=== PATIENT | male | born 1970 | race American Indian/Alaskan Native ===

== ENCOUNTER 2018-08-13 15:37 | Emergency (ER) | payer OTHER ==
--- NOTE | 2018-08-13 16:17 | Event Note ---
ED Screening Note Date of service: 08/13/18 Time: 16:13 ED Screening Note: 48 y/o male comes in for chest pain times 2 day. Hx/o none, no meds. No n/v pain 05/21. This initial assessment/diagnostic orders/clinical plan/treatment(s) is/are subject to change based on patients health status, clinical progression and re- assessment by fellow clinical providers in the ED. Further treatment and workup at subsequent clinical providers discretion. Patient/guardian urged not to elope from the ED as their condition may be serious if not clinically assessed and managed. Initial orders include:
--- NOTE | 2018-08-13 16:47 | XRay Report ---
CHEST 2 VIEWS INDICATION / CLINICAL INFORMATION: chest pain.. COMPARISON: None available. FINDINGS: SUPPORT DEVICES: None. HEART / MEDIASTINUM: No significant abnormality. LUNGS / PLEURA: No significant pulmonary or pleural abnormality. No pneumothorax. ADDITIONAL FINDINGS: No significant additional findings. IMPRESSION: 1. No acute findings. Signer Name: Speedy Brady MD Signed: 08/13/2018 4:43 PM Workstation Name: [id number]
[2018-08-13 16:57] LABS: Basophils # (Auto) 0.1 K/mm3 (0.0-0.1); Eosinophils # (Auto) 0.1 K/mm3 (0.0-0.4); Eosinophils % (Auto) 1.4 % (0.0-4.3); Hemoglobin 15.5 gm/dl (11.8-15.2); Lymphocytes # (Auto) 3.3 K/mm3 (1.2-5.4); Lymphocytes % (Auto) 32.1 % (13.4-35.0); Mean Corpuscular HGB Conc 34 % (32-34); Mean Corpuscular Volume 84 fl (84-94); Monocytes # (Auto) 0.7 K/mm3 (0.0-0.8); Monocytes % (Auto) 7.1 % (0.0-7.3); Platelet Count 196 K/mm3 (140-440); Red Blood Count 5.45 M/mm3 (3.65-5.03); Red Cell Distribution Width 14.8 % (13.2-15.2)
[2018-08-13 17:21] LABS: Alanine Aminotransferase 31 units/L (7-56); Albumin 4.3 g/dL (3.9-5); BUN/Creatinine Ratio 8; Blood Urea Nitrogen 10 mg/dL (9-20); Calcium 9.4 mg/dL (8.4-10.2); Hemolysis Index 24
[2018-08-13 20:38] VITALS: BP 154/105
--- NOTE | 2018-08-13 21:12 | Emergency Department Report ---
ED Chest Pain HPI - General Chief Complaint: Chest Pain Stated Complaint: CHEST PAIN/SOB Time Seen by Provider: 08/13/18 19:45 Source: patient Mode of arrival: Ambulatory Limitations: No Limitations - History of Present Illness Initial Comments: Patient is a 48-year-old Afro-[place] male with no past medical history who presents to the ED complaining of acute onset persistent intermittent left-sided chest pain for the last 3 days intermittently. Patient states that the pain is sharp and tight and last less than a second referral it resolves. The patient states that nothing appears to aggravate it or relieve it. Patient denies dizziness, nausea, vomiting, chest pain, headache, palpitations, change in vision, neck pain, shortness of breath, abdominal pain, syncope, diaphoresis or fever and chills and cough. MD Complaint: chest pain (left-sided) -: Gradual, days(s) (3) Onset: after eating Pain Location: substernal, left chest Pain Radiation: none Severity: mild Severity scale (0 -10): 2 Quality: tightness, dull, squeezing Consistency: intermittent Improves With: nothing Worsens With: nothing re: denies: nausea, vomting, diaphoresis, dyspnea, sense of impending doom Other Symptoms: denies: cough, fever, syncope, rash, acid taste in mouth, leg swelling, palpitations, burping Treatments Prior to Arrival: none Aspirin use within the Past 7 Days: (0) No - Related Data On Oral Contraceptives: No Previous Rx's Medication Instructions Recorded Last Taken Type Cyclobenzaprine [Flexeril] 10 mg PO Q8H PRN #12 tablet 08/13/18 Unknown Rx Naproxen [Naprosyn] 500 mg PO Q12H PRN #20 tablet 08/13/18 Unknown Rx Ranitidine HCl [Zantac] 150 mg PO Q12H #30 tablet 08/13/18 Unknown Rx Allergies Allergy/AdvReac Type Severity Reaction Status Date / Time No Known Allergies Allergy Verified 08/13/18 16:15 Heart Score - HEART Score History: Slightly suspicious EKG: Normal Age: 45-65 Risk factors: 1-2 risk factors Troponin: < normal limit HEART Score: 2 - Critical Actions Critical Actions: 0-3 pts:0.9-1.7%risk of adverse cardiac event.Candidate for discharge ED Review of Systems ROS: Stated complaint: CHEST PAIN/SOB Other details as noted in HPI Comment: All other systems reviewed and negative Constitutional: denies: chills, fever Eyes: denies: eye pain, eye discharge, vision change ENT: denies: ear pain, throat pain Respiratory: denies: cough, shortness of breath, wheezing Cardiovascular: chest pain. denies: palpitations, dyspnea on exertion, syncope, paroxysmal nocturnal dyspnea Endocrine: no symptoms reported Gastrointestinal: denies: abdominal pain, nausea, diarrhea Genitourinary: denies: urgency, dysuria Musculoskeletal: denies: back pain, joint swelling, arthralgia Skin: denies: rash, lesions Neurological: denies: headache, weakness, paresthesias Psychiatric: denies: anxiety, depression Hematological/Lymphatic: denies: easy bleeding, easy bruising ED Past Medical Hx - Past Medical History Previous Medical History?: No - Surgical History Past Surgical History?: Yes Additional Surgical History: right - Social History Smoking Status: Current Every Day Smoker Substance Use Type: Alcohol - Medications Home Medications: Home Medications Medication Instructions Recorded Confirmed Last Taken Type Cyclobenzaprine [Flexeril] 10 mg PO Q8H PRN #12 tablet 08/13/18 Unknown Rx Naproxen [Naprosyn] 500 mg PO Q12H PRN #20 tablet 08/13/18 Unknown Rx Ranitidine HCl [Zantac] 150 mg PO Q12H #30 tablet 08/13/18 Unknown Rx ED Physical Exam - General Limitations: No Limitations General appearance: alert, in no apparent distress - Head Head exam: Present: atraumatic, normocephalic, normal inspection - Eye Eye exam: Present: normal appearance, PERRL, EOMI Pupils: Present: normal accommodation - ENT ENT exam: Present: normal exam, normal orophraynx, mucous membranes moist, TM's normal bilaterally, normal external ear exam - Neck Neck exam: Present: normal inspection, full ROM - Respiratory Respiratory exam: Present: normal lung sounds bilaterally. Absent: respiratory distress, wheezes, rales, rhonchi, stridor, chest wall tenderness, accessory muscle use, decreased breath sounds, prolonged expiratory - Cardiovascular Cardiovascular Exam: Present: regular rate, normal rhythm, normal heart sounds. Absent: systolic murmur, diastolic murmur, rubs, gallop - GI/Abdominal GI/Abdominal exam: Present: soft, normal bowel sounds. Absent: distended, guarding, rebound, hyperactive bowel sounds - Rectal Rectal exam: Present: deferred - Extremities Exam Extremities exam: Present: normal inspection, full ROM, normal capillary refill - Back Exam Back exam: Present: normal inspection, full ROM. Absent: CVA tenderness (L), muscle spasm, vertebral tenderness - Neurological Exam Neurological exam: Present: alert, oriented X3, CN II-XII intact, normal gait, reflexes normal - Psychiatric Psychiatric exam: Present: normal affect, normal mood - Skin Skin exam: Present: warm, dry, intact, normal color. Absent: rash ED Course Vital Signs 08/13/18 08/13/18 16:13 20:07 Temperature 98.2 F Pulse Rate 68 60 Respiratory 16 15 Rate Blood Pressure 166/92 154/105 [Right] O2 Sat by Pulse 98 97 Oximetry - Reevaluation(s) Reevaluation #1: 08/13/18 21:40 Patient is alert and oriented but easily and is not in distress. Lab test results were reviewed and are all unremarkable including repeat 2 hours troponin levels. Chest x-ray shows no acute cardiopulmonary abnormalities. The patient has a HEART score of 2 based on the patient's age and risk factor for coronary artery disease which is heavy tobacco use. Patient has not had a stress test or ever been evaluated by a burn crew member. Patient was discharged home and given a referral to the burn crew member on-call Dr. Mcfarland for outpatient. Patient was advised to return to the ED immediately if symptoms get worse. SOPHIA score - Sophia Score Age > 65: (0) No Aspirin use within the Past 7 Days: (0) No 3 or more CAD Risk Factors: (0) No 2 or more Angina events in past 24 hrs: (0) No Known CAD with more than 50% Stenosis: (0) No Elevated Cardiac Markers: (0) No ST Deviation Greater than 0.5mm: (0) No SOPHIA Score: 0 ED Medical Decision Making - Lab Data Result diagrams: 08/13/18 16:47 08/13/18 16:47 - EKG Data Rate: normal - EKG Data Interpretation: normal EKG 08/13/18 21:47 Normal sinus rhythm with ventricular rate of 81 bpm, no ST or T wave abnormalities - Radiology Data Radiology results: report reviewed, image reviewed Chest x-ray shows no acute cardiopulmonary abnormalities - Medical Decision Making Patient is alert and oriented but easily and is not in distress. Lab test results were reviewed and are all unremarkable including repeat 2 hours troponin levels. Chest x-ray shows no acute cardiopulmonary abnormalities. The patient has a HEART score of 2 based on the patient's age and risk factor for coronary artery disease which is heavy tobacco use. Patient has not had a stress test or ever been evaluated by a burn crew member. Patient was discharged home and given a referral to the burn crew member on-call Dr. Mcfarland for outpatient. Patient was advised to return to the ED immediately if symptoms get worse. - Differential Diagnosis Chest pain, Acute coronary syndrome, Muscle strain, GERD Critical care attestation.: If time is entered above; I have spent that time in minutes in the direct care of this critically ill patient, excluding procedure time. ED Disposition Clinical Impression: Nonspecific chest pain Muscle strain of chest wall Qualifiers: Encounter type: initial encounter Qualified Code(s): S29.011A - Strain of muscle and tendon of front wall of thorax, initial encounter GERD (gastroesophageal reflux disease) Qualifiers: Esophagitis presence: without esophagitis Qualified Code(s): K21.9 - Gastro- esophageal reflux disease without esophagitis Disposition: DC- TO HOME OR SELFCARE Is pt being admited?: No Does the pt Need Aspirin: No Condition: Stable Instructions: Chest Pain (ED) Additional Instructions: Take medications with food, drink plenty of fluids and follow up with your [facility] Physician as advised. Consider following up with Dr. Mcfarland, the [employer] termite control service representative for further evaluation. Return to the ED immediately if symptoms get worse. Prescriptions: Cyclobenzaprine [Flexeril] 10 mg PO Q8H PRN #12 tablet PRN Reason: Muscle Spasm Naproxen [Naprosyn] 500 mg PO Q12H PRN #20 tablet PRN Reason: Pain , Severe (7-10) Ranitidine HCl [Zantac] 150 mg PO Q12H #30 tablet Referrals: THAI MCFARLAND MD [Staff Physician] - 3-5 Days Time of Disposition: 21:19 Print Language: ICELANDIC
== END 2018-08-13 20:30 | disposition home or self-care (01) ==
LOC: ED 15:37
DX: S29.011A Strain of muscle and tendon of front wall of thorax, initial encounter (principal); K21.9 Gastro-esophageal reflux disease without esophagitis; F17.200 Nicotine dependence, unspecified, uncomplicated; X58.XXXA Exposure to other specified factors, initial encounter; Y93.89 Activity, other specified; Y92.89 Other specified places as the place of occurrence of the external cause; Y99.8 Other external cause status
CPT/HCPCS: 36415; 71046; 80053; 84484; 85025; 93005; 93010

== ENCOUNTER 2019-02-26 17:37 | Emergency (ER) | payer SELFPAY ==
[2019-02-26 18:01] VITALS: BP 160/107
--- NOTE | 2019-02-26 18:16 | Emergency Department Report ---
Blank Doc - Documentation Documentation: 49-year-old male that presents with right knee pain. This initial assessment/diagnostic orders/clinical plan/treatment(s) is/are subject to change based on patient's health status, clinical progression and re- assessment by fellow clinical providers in the ED. Further treatment and workup at subsequent clinical providers discretion. Patient/guardians urged not to elope from the ED as their condition may be serious if not clinically assessed and managed. Initial orders include: 1- Patient sent to [facility] for further evaluation and treatment 2- xrays
--- NOTE | 2019-02-26 19:04 | XRay Report ---
RIGHT KNEE 3 VIEWS INDICATION: knee pain. COMPARISON: No relevant prior imaging study available. FINDINGS: No acute fracture or dislocation is seen. No soft tissue swelling or foreign bodies. There are no significant degenerative changes. No radiographic evidence of joint effusion. IMPRESSION: 1. No acute findings. Signer Name: Loco Thomas MD Signed: 02/26/2019 6:59 PM Workstation Name: [id number]
--- NOTE | 2019-02-26 21:57 | Emergency Department Report ---
ED Lower Extremity HPI - General Chief Complaint: Extremity Injury, Lower Stated Complaint: RT KNEE PAIN Time Seen by Provider: 02/26/19 18:15 Source: patient Mode of arrival: Ambulatory Limitations: No Limitations - History of Present Illness Initial Comments: 49-year-old -[place] male presents to the emergency room for right knee pain. Patient states that he stepped down wrong on 02/11/2019 and is having pain since. Patient has not taken anything for pain. Patient reports has been able to walk around. MD Complaint: knee injury Onset/Timin -: days(s) Injury: Knee: Right Place: home Severity scale (0 -10): 7 Improves With: nothing Worsens With: nothing Context: other (slipped on a step) Associated Symptoms: ambulatory. denies: swelling, numbness, tingling Treatments Prior to Arrival: other (nothing for pain) - Related Data Previous Rx's Medication Instructions Recorded Last Taken Type Cyclobenzaprine [Flexeril] 10 mg PO Q8H PRN #12 tablet 08/13/18 Unknown Rx Naproxen [Naprosyn] 500 mg PO Q12H PRN #20 tablet 08/13/18 Unknown Rx raNITIdine HCl [Zantac] 150 mg PO Q12H #30 tablet 08/13/18 Unknown Rx Allergies Allergy/AdvReac Type Severity Reaction Status Date / Time No Known Allergies Allergy Verified 08/13/18 16:15 ED Review of Systems ROS: Stated complaint: RT KNEE PAIN Other details as noted in HPI Comment: All other systems reviewed and negative ED Past Medical Hx - Past Medical History Previous Medical History?: No - Surgical History Past Surgical History?: No Additional Surgical History: right - Social History Smoking Status: Current Every Day Smoker Substance Use Type: None - Medications Home Medications: Home Medications Medication Instructions Recorded Confirmed Last Taken Type Cyclobenzaprine [Flexeril] 10 mg PO Q8H PRN #12 tablet 08/13/18 Unknown Rx Naproxen [Naprosyn] 500 mg PO Q12H PRN #20 tablet 08/13/18 Unknown Rx raNITIdine HCl [Zantac] 150 mg PO Q12H #30 tablet 08/13/18 Unknown Rx ED Physical Exam - General Limitations: No Limitations General appearance: alert, in no apparent distress - Head Head exam: Present: atraumatic, normocephalic - Eye Eye exam: Present: normal appearance - ENT ENT exam: Present: mucous membranes moist - Expanded Lower Extremity Exam Right Hip exam: Present: normal inspection Upper Leg exam: Present: normal inspection Knee exam: Present: normal inspection, full ROM, full knee extension. Absent: tenderness, swelling, laceration, ecchymosis, deformity, crepidus, dislocation, erythema Lower Leg exam: Present: normal inspection, full ROM. Absent: swelling Ankle exam: Present: normal inspection, full ROM. Absent: swelling Neuro vascular tendon exam: Present: no vascular compromise Gait: Positive: observed and normal - Neurological Exam Neurological exam: Present: alert, oriented X3, normal gait - Psychiatric Psychiatric exam: Present: normal affect, normal mood - Skin Skin exam: Present: warm, dry, intact, normal color. Absent: rash ED Course Vital Signs 02/26/19 02/26/19 17:59 18:15 Temperature 98.2 F 98.2 F Pulse Rate 68 65 Respiratory 16 18 Rate Blood Pressure 160/107 160/107 O2 Sat by Pulse 96 99 Oximetry ED Lower Extremity MDM - Radiology Data Radiology results: report reviewed X-ray of right knee is negative for any acute findings. Old fractures or subluxation or dislocation - Medical Decision Making 49-year-old -[place] male presents to the emergency room for right knee pain. Patient states that he stepped down wrong on 02/11/2019 and is having pain since. Patient has not taken anything for pain. Patient reports has been able to walk around. X-ray of knee is negative. Patient can take ibuprofen or Tylenol or Aleve for pain management. Patient is referred to Dr. Ramirez for further evaluation if pain continues. Critical care attestation.: If time is entered above; I have spent that time in minutes in the direct care of this critically ill patient, excluding procedure time. ED Disposition Clinical Impression: Knee pain, acute Qualifiers: Laterality: right Qualified Code(s): M25.561 - Pain in right knee Disposition: TO HOME OR SELFCARE Is pt being admited?: No Does the pt Need Aspirin: No Condition: Stable Instructions: Knee Pain (ED) Additional Instructions: Take [id number] Tylenol ibuprofen or Aleve for pain management. Follow up with Dr. Ramirez orthopedic provider symptoms persist or gets worse. Referrals: PRIMARY CAREMD [Primary Care Provider] - 3-5 Days BECCA RAMIREZ MD [Staff Physician] - 3-5 Days
== END 2019-02-26 22:02 | disposition home or self-care (01) ==
LOC: ED 17:37
DX: M25.561 Pain in right knee (principal); F17.200 Nicotine dependence, unspecified, uncomplicated

== ENCOUNTER 2019-05-09 21:40 | Emergency (ER) | payer SELFPAY ==
[2019-05-09 21:56] VITALS: BP 164/93
--- NOTE | 2019-05-10 00:59 | Emergency Department Report ---
HPI - General Chief Complaint: Earache Time Seen by Provider: 05/10/19 00:00 - HPI HPI: This is a 49-year-old male who reports that his left ear pain for 2 days. He said he thinks something is in his ear just feels stopped up. He said both of them feel stopped up. Denies any nausea vomiting. Denies any cough or fever. Denies any nasal congestion or runny nose. Denies any sore throat or chest pain. Denies any exposure to COVID 19 virus. Denies any trauma to ears or any drainage from ears. Denies any loss of hearing. He reports that his ears feel plugged up. Ear pain is 6 out of 10 and achy. Pain is constant and no medication taken for pain. ED Past Medical Hx - Past Medical History Previous Medical History?: No - Surgical History Past Surgical History?: No Additional Surgical History: right - Family History Family history: no significant - Social History Smoking Status: Current Every Day Smoker Substance Use Type: Marijuana - Medications Home Medications: Home Medications Medication Instructions Recorded Confirmed Last Taken Type Cyclobenzaprine [Flexeril] 10 mg PO Q8H PRN #12 tablet 08/13/18 Unknown Rx Naproxen [Naprosyn] 500 mg PO Q12H PRN #20 tablet 08/13/18 Unknown Rx raNITIdine HCl [Zantac] 150 mg PO Q12H #30 tablet 08/13/18 Unknown Rx Amoxicillin [Amoxicillin TAB] 875 mg PO BID 10 Days #20 tablet 05/10/19 Unknown Rx Cetirizine HCl [ZyrTEC] 10 mg PO QAM 14 Days #14 capsule 05/10/19 Unknown Rx Ibuprofen [Motrin] 800 mg PO Q8HR PRN #12 tablet 05/10/19 Unknown Rx ED Review of Systems ROS: Stated complaint: OBJECT IN EAR Other details as noted in HPI Constitutional: denies: chills, fever Eyes: denies: eye discharge ENT: ear pain. denies: throat pain, congestion Respiratory: denies: cough, shortness of breath, wheezing Cardiovascular: denies: chest pain, palpitations, edema, syncope Gastrointestinal: denies: nausea, vomiting Skin: denies: rash Neurological: denies: headache, vertigo Physical Exam - Physical Exam Vital Signs: Vital Signs 05/09/19 21:54 Temperature 98.1 F Pulse Rate 72 Respiratory 20 Rate Blood Pressure 164/93 O2 Sat by Pulse 97 Oximetry General: This is a 49-year-old male well-nourished well-developed in no acute distress. Physical Exam: Head: Normocephalic atraumatic Ears:BIateral TM with congestion and left TM erythema and loss of bony landmarks. Javed EAC with normal exam. No mastoid bone tenderness. Mouth: Moist, no pharyngeal erythema or exudate . UVULA midline and oral airways patent. No peritonsillar abscess Neck: Nontender to palpate, supple, normal range of motion. No adenopathy. No c- spine tenderness. Nose: Bilateral normal with no drainage maxillary and frontal sinuses non- tender to palpate. Eyes: Bilateral Sclerae and conjunctiva without injection. Bilateral pupils equal and reactive to light. Bilateral lids are normal. Lungs: Clear to auscultate bilaterally, no rhonchi wheezes or rales. Normal work of breathing and no chest wall tenderness CV: S1, S2. Regular rate and rhythm negative murmur. Capillary refill is less than 3 seconds Extremity: No clubbing, cyanosis or edema. +2 pulses in all extremities and no neurovascular compromise Skin: Clean dry and intact, no rashes or lesions Psych: Normal mood and behavior ED Course Vital Signs 05/09/19 21:54 Temperature 98.1 F Pulse Rate 72 Respiratory 20 Rate Blood Pressure 164/93 O2 Sat by Pulse 97 Oximetry - Reevaluation(s) Reevaluation #1: 05/10/19 01:01 Patient stable throughout ED course and found to have otitis media ED Medical Decision Making - Medical Decision Making This is a 49-year-old male here for ear pain. He was found to have otitis media without any foreign body seen. I discussed diagnosis and treatment plan with patient he voiced understanding. I discussed with him he needs to follow-up with his primary care physician for follow-up of otitis media. Patient discharged home with prescription for amoxicillin and Zyrtec Critical care attestation.: If time is entered above; I have spent that time in minutes in the direct care of this critically ill patient, excluding procedure time. ED Disposition Clinical Impression: Acute otitis media, left Disposition: DC-01 TO HOME OR SELFCARE Is pt being admited?: No Does the pt Need Aspirin: No Condition: Stable Instructions: Otitis Media (ED) Additional Instructions: Please take medication as prescribed Increase your fluid intake Follow-up with your primary care and ear nose and throat in 1 to 2 days If your condition worsens, return to the emergency room Prescriptions: Amoxicillin [Amoxicillin TAB] 875 mg PO BID 10 Days #20 tablet Ibuprofen [Motrin] 800 mg PO Q8HR PRN #12 tablet PRN Reason: pain Cetirizine HCl [ZyrTEC] 10 mg PO QAM 14 Days #14 capsule Referrals: PRIMARY CARE, [Primary Care Provider] - 3-5 Days
== END 2019-05-10 01:17 | disposition home or self-care (01) ==
LOC: ED 21:40
DX: H66.92 Otitis media, unspecified, left ear (principal); F17.200 Nicotine dependence, unspecified, uncomplicated; F12.90 Cannabis use, unspecified, uncomplicated; Z79.899 Other long term (current) drug therapy; W22.8XXA Striking against or struck by other objects, initial encounter; Y93.89 Activity, other specified; Y92.89 Other specified places as the place of occurrence of the external cause; Y99.8 Other external cause status
CPT/HCPCS: 99282